=== PATIENT | male | born 1965 | race Caucasian/White ===

== ENCOUNTER 2021-10-07 21:06 | Observation (INO) ==
[2021-10-07 23:36] LABS: Basophils # (auto) 0.02 K/uL (0-0.2); Basophils % (auto) 0.3 %; Eosinophils # (auto) 0.06 K/uL (0-0.50); Eosinophils % (auto) 0.9 %; Immature Granulocytes # (auto) 0.02 K/uL (0.00-0.02); Immature Granulocytes % (auto) 0.3 %; Lymphocytes # (auto) 0.87 K/uL (1.2-3.4); Lymphocytes % (auto) 13.1 %; Mean Corpuscular Hemoglobin 29.8 pg (25.0-34.0); Mean Corpuscular Volume 87.6 fL (80.0-100.0); Monocytes # (auto) 0.71 K/uL (0.24-0.82); Monocytes % (auto) 10.7 %; Neutrophils # (auto) 4.98 K/uL (1.4-6.5); Neutrophils % (auto) 74.7 %; Platelet Count 240 K/uL (130-400); Red Blood Count 5.71 M/uL (4.63-6.08); White Blood Count 6.66 K/ul (4.8-10.8)
[2021-10-08 00:01] LABS: Albumin Globulin Ratio 1.6 (0.9-2); Albumin Level 4.4 gm/dl (3.4-5.0); BUN Creatinine Ratio 16.4 (10-20); Bilirubin,Total 0.8 mg/dl (0.2-1.0); Calcium 9.1 mg/dl (8.5-10.1); Est GFR (Non-African American) 62.2 ml/min; Globulin 2.7 gm/dl (2.5-4.0); Total Protein 7.1 gm/dl (6.0-8.3)
[2021-10-08] MEDS ORDERED: MoRPHine SULFATE 2 MG/ML CARP IV PRN (00:25)
[2021-10-08] MEDS ORDERED: MoRPHine SULFATE 4 MG/ML 1 ML CARP\\VIAL IV PRN (00:25)
[2021-10-08] MEDS ORDERED: PROMETHAZINE HCL 25 MG in SODIUM CHLORIDE 0.9% 50 ML IV PRN (00:28)
[2021-10-08] MEDS ORDERED: ONDANSETRON INJ 2 MG/ML 2 ML VIAL IV PRN ×2 (00:28→12:44)
[2021-10-08] MEDS ORDERED: PIPERACILLIN/TAZOBACTAM 4.5 GM/120 ML BAG IV STA (01:05)
[2021-10-08] MEDS: LACTATED RINGER'S 1,000 ML IV SCH ×3 (01:46→21:04)
[2021-10-08] MEDS: PIPERACILLIN/TAZOBACTAM 3.375 GM in DEXTROSE 5% 100 ML IV SCH ×3 (06:49→21:04)
--- NOTE | 2021-10-08 07:28 | Emergency Department Note ---
Impression & Plan Abdominal pain, acute, right lower quadrant Admit to Dr. Krishnan observation ED Provider Note NAME: JUHI PALACIOS AGE: 56 SEX: M ARRIVES VIA: Walk-In INFORMANT: Patient ED PROVIDER(S): Norma Yates DO CHIEF COMPLAINT: Right Lower quadrant abdominal pain PLAN: Disposition: Admit to Dr. Krishnan Condition: Fair MEDICAL DECISION MAKING: This is a 56-year-old male patient presents emergency department with right lower quadrant abdominal pain for the past 2 days. The patient had an outpatient CT scan of the abdomen/pelvis which showed equivocal signs of early appendicitis. Patient was directed here to the emergency department for laboratory studies. These were obtained and were unremarkable. I discussed the case with Dr. Krishnan from surgery and he will evaluate for further management. Triage Nursing notes reviewed and agree with them. Prior medical records reviewed from [facility] Vital Signs: reviewed and remarkable Differential diagnosis: Mesenteric lymphadenitis, acute appendicitis, bowel perforation Diagnostics interpreted by me: Laboratory studies: See below HPI: 56/M arrives for evaluation of right lower quadrant abdominal pain. Patient developed diffuse mid abdominal pain on Wednesday evening that he described as being uncomfortable. The pain was more epigastric and general in nature and then moved to the right lower quadrant over the past 48 hours. He had some slight nausea at that time. He then developed a fever over the past 36 hours. Patient was seen at a [facility] clinic where he underwent CT scanning which showed evidence of equivocal early appendicitis he was directed here for laboratory tests and further evaluation. ROS: See above HPI for pertinent positives & negatives. A total of 10 systems reviewed and were otherwise negative. PAST MEDICAL HISTORY:None PAST SURGICAL HISTORY:See Below FAMILY HISTORY:See Below SOCIAL HISTORY:Does not smoke or drink alcohol. He lives with his family. HOME MEDICATIONS:See list ALLERGIES:None VITALS:See Below PHYSICAL EXAMINATION: HEENT: Head - normocephalic and atraumatic Pupils are equal, round, and reactive to light. Extraocular eye muscles are intact, and sclera are anicteric. Nose - moist nasal mucosa without discharge. Mouth - moist buccal mucosa. Oropharynx is nonerythematous and there is no tonsillar exudate or edema noted. Neck: Supple; no JVD, nuchal rigidity, cervical lymphadenopathy, or auscultated bruits. Heart: Regular rate and rhythm. There is a normal S1 and S2 with no murmurs, clicks, or gallops appreciated. Lungs: Clear to auscultation bilaterally with no wheezes, rales, or rhonchi. Abdomen: Soft, moderate tenderness to palpation in the right lower quadrant over McBurney's point. Normal bowel sounds. Abdomen is nondistended. There are no palpable pulsatile masses or hepatosplenomegaly. There is no guarding, rigidity, or rebound noted. Extremities: No evidence of cyanosis, clubbing, or edema. There are easily palpable peripheral pulses. Skin: warm and dry with good turgor and no rashes. ED COURSE: Times/Reassessments: 231: A complete history and physical was performed. Reports from [employer] were reviewed. An IV lock was initiated and labs were drawn as above. Discussed the case with Dr. Krishnan and he will admit the patient for observation. Norma Ytaes DO Past Med/Surg History Social History Smoking Status: Never smoker Second Hand Exposure: No; Do You Dip or Chew Tobacco: No; Hx Alcohol Use: Yes Alcohol type: beer Hx Substance Use: No Preferred Language: Nepali Communication Ability: Effective Punch Press Feeder Required: No Beliefs That Will Affect Care: None Current Living Situation: Family Other Information That Helps Us Care for You: No Feels Safe at Home: Yes Safety Concerns: Feels Safe At This Time Assistive Devices: CPAP and Glasses Assistive Devices Comment: reading glasses and CPAP at home Allergies Allergies Allergy/AdvReac Type Severity Reaction Status Date / Time No Known Allergies Allergy Unknown Verified 10/08/21 01:02 Home Meds Home Medications Medication Instructions Recorded Confirmed melatonin 10 mg tablet 10 mg PO HS 10/08/21 10/08/21 Results & Data (ED) Vital Signs Vital Signs - 24 hr 10/07/21 21:49 Temperature 37.2 C Temperature Source Temporal Artery Scan Pulse Rate 77 Pulse Rhythm Regular Pulse Strength Normal Respiratory Rate 20 Respiratory Effort / Characteristics Non-Labored Respiratory Depth Normal Respiratory Pattern Regular Blood Pressure 121/85 Blood Pressure Mean 97 Blood Pressure Position Sitting Pulse Oximetry 98 Oxygen Delivery Method Room Air Sepsis Recent Fever Within 48 Hours Yes Sepsis New/Unexplained Change in Mental Status N/A Sepsis Action Taken by Nursing No Action Required Laboratory Data Result diagrams: 10/07/21 23:19 10/07/21 23:19 Lab Results 10/07/21 10/07/2110/07/22 Range/Units 21:55 23:19 23:19 WBC 6.66 (4.8-10.8) K/ul RBC 5.71 (4.63-6.08) M/uL Hgb 17.0 (14.0-18.0) g/dl Hct 50.0 (40.1-51.0) % MCV 87.6 (80.0-100.0) fL MCH 29.8 (25.0-34.0) pg MCHC 34.0 (32.0-36.0) g/dL RDW Std Deviation 41.0 (36.4-46.3) fL RDW Coeff of Gabrielle 13.0 (11.5-14.5) % Plt Count 240 (130-400) K/uL MPV 10.0 (9.4-12.4) fL Immature Gran % (Auto) 0.3 % Neut % (Auto) 74.7 % Lymph % (Auto) 13.1 % [place] % (Auto) 10.7 % Eos % (Auto) 0.9 % Baso % (Auto) 0.3 % Neut # (Auto) 4.98 (1.4-6.5) K/uL Lymph # (Auto) 0.87 L (1.2-3.4) K/uL [place] # (Auto) 0.71 (0.24-0.82) K/uL Eos # (Auto) 0.06 (0-0.50) K/uL Baso # (Auto) 0.02 (0-0.2) K/uL Immature Gran # (Auto) 0.02 (0.00-0.02) K/uL Sodium 138 (136-145) mmol/L Potassium 4.0 (3.5-5.1) mmol/L Chloride 100 (98-107) mmol/L Carbon Dioxide 31 (21-32) mmol/L Anion Gap 7 (3-11) BUN 21 (6-23) mg/dl Creatinine 1.28 (0.6-1.4) mg/dl Est Cr Clr Drug Dosing 75.0 ml/min Est GFR ( Amer) 72.0 ml/min Est GFR (Non-Af Amer) 62.2 ml/min BUN/Creatinine Ratio 16.4 (10-20) Glucose 93 (70-99(Fasting)) mg/dl Calcium 9.1 (8.5-10.1) mg/dl Total Bilirubin 0.8 (0.2-1.0) mg/dl AST 14 (13-39) U/L ALT 17 (7-52) U/L Alkaline Phosphatase 92 (34-104) U/L Total Protein 7.1 (6.0-8.3) gm/dl Albumin 4.4 (3.4-5.0) gm/dl Globulin 2.7 (2.5-4.0) gm/dl Albumin/Globulin Ratio 1.6 (0.9-2) Lipase 21 (11-82) U/L SARS-CoV-2, RNA, NAAT NEGATIVE (NEGATIVE) Administered Medications Lactated Ringer's (Lr) 1,000 mls @ 100 mls/hr IV .Q10H NATHALY Stop: 11/07/21 00:29 Last Admin: 10/08/21 01:46 Dose: 100 mls/hr Documented By: ALPHONSE Piperacillin Sod/Tazobactam (Sod 3.375 gm/ Dextrose) 115 mls @ 28.75 mls/hr IV Q8H NATHALY; Protocol Stop: 10/18/21 05:59 Last Admin: 10/08/21 06:49 Dose: 28.8 mls/hr Documented By: Discontinued Medications Piperacillin Sod/Tazobactam Sod (Zosyn) 4.5 gm in 120 mls @ 240 mls/hr IV NOW S TA; Protocol Stop: 10/08/21 01:34 Last Infusion: 10/08/21 02:16 Dose: 0 mls/hr Documented By: Admin: 10/08/21 01:46 Dose: 240 mls/hr Documented By: ALPHONSE Discharge Plan Visit Data Chief Complaint: Abdominal Pain Stated Complaint: APPENDICITIS ED Provider: Norma Yates Discharge Problem: Abdominal pain, acute, right lower quadrant Patient Disposition: Admitted As Inpatient Discharge Instructions Interventions: ED Discharge Assessment Last Done: 10/08/21 04:17
--- NOTE | 2021-10-08 10:04 | Surgery Consultation ---
Date of Consultation October 08, 2021 Assessment & Plan (1) Appendicitis: pt is a 56 year-old male who was admitted to hospital for RLQ pain, IMP: acute appendicitis, RLQ pain, Plan, pt is still have RLQ pain, I recommend to do laparoscopic appendectomy, possible open, D/W benefits, risks and alternatives of the surgery, the risks- infection, bleeding, abscess, injury other organs, incisional hernia, pt understood, he agrees with surgery,he signed informed consent, I answered all questions, pre-op antibiotic, (2) Abdominal pain, acute, right lower quadrant: see above History of Present Illness Reason for Consultation: abdominal pain Requesting Physician: Norma Yates DO Attending Physician: Lenin Olivo MD History of Present Illness HPI: 56/M arrives for evaluation ofright lower quadrant abdominal pain. Patient developed diffuse mid abdominal pain on Wednesday evening that he described as being uncomfortable. The pain was more epigastric and general in nature and then moved to the right lower quadrant over the past 48 hours. He had some slight nausea at that time. He then developed a fever over the past 36 hours. Patient was seen at a [facility] clinic where he underwent CT scanning which anderson wed evidence of equivocal early appendicitis he was directed here for laboratory tests and further evaluation. I ( Lenin Oilvo MD ) got a call for consult appendicitis, I reviewed pt's H/P, labs, CT scan with pt, pt is still have RLQ pain, ROS: See above HPI for pertinent positives & negatives. A total of 10 systems reviewed and were otherwise negative. PAST MEDICAL HISTORY:None PAST SURGICAL HISTORY:See Below FAMILY HISTORY:See Below SOCIAL HISTORY:Does not smoke or drink alcohol. He lives with his family. HOME MEDICATIONS:See list ALLERGIES:None Allergies Allergy/AdvReac Type Severity Reaction Status Date / Time No Known Allergies Allergy Unknown Verified 10/08/21 01:02 Home Medications Medication Instructions Recorded Confirmed Type melatonin 10 mg tablet 10 mg PO HS 10/08/21 10/08/21 History Patient History Social History Smoking Status: Never smoker Second Hand Exposure: No; Do You Dip or Chew Tobacco: No; Hx Alcohol Use: Yes Alcohol type: beer Hx Substance Use: No Preferred Language: Pashto Communication Ability: Effective Blood Splatter Analyst Required: No Beliefs That Will Affect Care: None Current Living Situation: Family Other Information That Helps Us Care for You: No Feels Safe at Home: Yes Safety Concerns: Feels Safe At This Time Assistive Devices: CPAP and Glasses Assistive Devices Comment: reading glasses and CPAP at home Review of Systems Constitutional: as per Subjective / HPI Eyes: as per Subjective / HPI Respiratory: as per Subjective / HPI Cardiovascular: as per Subjective / HPI Gastrointestinal: as per Subjective / HPI, + abdominal pain and + nausea Genitourinary: + as per Subjective / HPI Neurologic: as per Subjective / HPI Psychiatric: as per Subjective / HPI Endocrine: as per Subjective / HPI Hematologic / Lymphatic: as per Subjective / HPI Physical Exam Constitutional: WD/WN, vitals as above Eyes: PERRL, conjunctivae normal, anicteric sclerae Neck: trachea midline, no thyromegaly Respiratory: normal respiratory effort, lungs clear to auscultation Cardiovascular: RRR, no murmur, no edema Gastrointestinal (Abdomen): tenderness at RLQ, no rebound pain, no disten, BS +. Musculoskeletal: no cyanosis or clubbing, extremities motor strength 5/5 Neurologic: patellar DTR's 2+ bilat, sensation intact Psychiatric: A+Ox3, euthymic affect Results & Data ([facility]) Vital Signs (Past 12 Hours) Vital Signs Temp Pulse Pulse Resp BP BP Pulse Ox 10/08/21 07:52 10/08/21 05:32 64 16 99 10/08/21 04:30 36.7 C 67 16 114/65 95 10/08/21 04:00 67 15 113/77 10/08/21 03:00 113/65 10/08/21 02:30 74 18 118/79 99 10/08/21 00:42 77 18 121/76 99 O2 Del Method FiO2 10/08/21 07:52 Room Air 10/08/21 05:32 21 10/08/21 04:30 Room Air 10/08/21 04:00 10/08/21 03:00 10/08/21 02:30 Room Air 10/08/21 00:42 Room Air Laboratory Results Abnormal lab results 10/07/21 Range/Units 23:19 Lymph # (Auto) 0.87 L (1.2-3.4) K/uL Diagnostic Findings CT scan- report- 9 mm appendix, possible early appendicitis,
--- NOTE | 2021-10-08 10:04 | History & Physical Bridge Note ---
Date of Service October 08, 2021 History & Physical Bridge Note I have examined the patient, reviewed the History & Physical and in the interval since the performance of the History & Physical I have noted the following changes of clinical significance: no changes noted
[2021-10-08] MEDS ORDERED: KETOROLAC 30 MG/ML VIAL IV PRN (12:44)
[2021-10-08] MEDS ORDERED: fentaNYL citrate 100 MCG/2 ML VIAL IV PRN (12:44)
[2021-10-08] MEDS ORDERED: ATROPINE SULFATE 0.1 MG/ML 10ML SYR IV PRN (12:44)
--- NOTE | 2021-10-08 12:44 | Anesthesiology Consultation ---
Date of Service October 08, 2021 Assessment & Plan (1) Encounter for pre-operative examination: Chart Review Chart Review: Acceptable Risk for Surgery History Surgery Operation Date: 10/08/21 11:55 Proposed Procedures p Laparoscopic Appendectomy - Lenin Olivo MD Height/Weight Height: 5 ft 10 in Weight: 95.6 kg Allergies Allergy/AdvReac Type Severity Reaction Status Date / Time No Known Allergies Allergy Unknown Verified 10/08/21 01:02 Medications Home Medications Medication Instructions Recorded Confirmed Last Taken melatonin 10 mg tablet 10 mg PO HS 10/08/21 10/08/21 10/07/21 Active Medications Generic Name Dose Route Start Last Admin Trade Name Dilcia PRN Reason Stop Dose Admin Lactated Ringer's 1,000 mls @ 100 mls/hr 10/08/21 00:30 10/08/21 10:20 Lr IV 11/07/21 00:29 100 mls/hr .Q10H NATHALY Administration Piperacillin Sod/Tazobactam 115 mls @ 28.75 mls/hr 10/08/21 06:00 10/08/21 10:50 Sod 3.375 gm/ Dextrose IV 10/18/21 05:59 Infused Q8H NATHALY Infusion Protocol NPO Date Last Intake of Fluids: 10/07/21 Time Last Intake of Fluids: 23:59 Past Medical History Medical History (Updated 10/08/21 @ 12:44 by Austyn Herrera MD) No significant medical problems Past Surgical History Surgical History (Updated 10/08/21 @ 12:43 by Austyn Herrera MD) No significant past surgical history Social History Smoking Status: Never smoker Do You Dip or Chew Tobacco: No Hx Alcohol Use: Yes Alcohol type: beer alcohol intake frequency: holidays/special occasions only Hx Substance Use: No substance use type: does not use Physical Exam Vital Signs Last Vital Signs Temp 36.7 C 10/08/21 04:30 Pulse 64 10/08/21 05:32 Resp 16 10/08/21 05:32 BP 114/65 10/08/21 04:30 Pulse Ox 99 10/08/21 05:32 O2 Del Method 10/08/21 07:52 FiO2 21 10/08/21 05:32 Testing Laboratory Results 10/07/21 23:19 10/07/21 23:19
[2021-10-08] MEDS ORDERED: BACITRACIN OINT 15 GM TUBE ONE (13:19)
[2021-10-08] MEDS ORDERED: LIDOCAINE 1% LOCAL 20 ML VIAL ONE (13:20)
[2021-10-08] MEDS ORDERED: BUPIVACAINE 0.5 % 5 MG/1 ML MPF 30ML VIAL ONE (13:20)
[2021-10-08] MEDS ORDERED: ROCURONIUM BROMIDE 10 MG/ML 5 ML VIAL IV ONE (13:31)
[2021-10-08] MEDS ORDERED: PROPOFOL IV EMULSION 10 MG/ML 20 ML VIAL IV ONE (13:31)
[2021-10-08] MEDS ORDERED: DEXAMETHASONE SOD INJ 4 MG/ML VIAL ONE (13:31)
[2021-10-08] MEDS ORDERED: LIDOCAINE 2% MPF LOCAL 5 ML VIAL INFIL ONE (13:31)
[2021-10-08] MEDS ORDERED: MIDAZOLAM HCL 1 MG/ML 2ML VIAL ONE (13:31)
[2021-10-08] MEDS ORDERED: fentaNYL citrate 100 MCG/2 ML VIAL ONE ×2 (13:31)
[2021-10-08] MEDS ORDERED: ONDANSETRON INJ 2 MG/ML 2 ML VIAL ONE (13:31)
[2021-10-08] MEDS ORDERED: ACETAMINOPHEN 1000 MG/100 ML IV IV ONE (13:42)
--- NOTE | 2021-10-08 14:46 | Post Operative Brief Note ---
Immediate Post Op Note v1 Date of Surgery October 08, 2021 Pre & Post Diagnosis Operation Date: 10/08/21 11:55 Pre-Op Diagnosis: Acute Appendicitis Post-Op Diagnosis: Acute Appendicitis I identified the patient and participated in the time-out.: Yes Procedure Operation Date: 10/08/21 11:55 Actual Procedures p Laparoscopic Appendectomy - Lenin Olivo MD Surgeon Lenin Olivo MD [place] Attendant cardiac catheterization technologist Estimated Blood Loss 10 Findings Consistent with Post-Op Diagnosis Fluids 1200ml Specimens appendix Drains Tipton Catheter (16fr tipton catheter inserted without difficulty by Cristiano Tierney RN. Tipton is patent and draining concentrated clear yellow urine. Anesthesia to monitor urine output intraoperatively. Tipton removed at end of case with balloon intact. Tipton drained approximately 700ml.) Anesthesia Type General Complications none Disposition Accompanied Patient To Recovery: Yes
[2021-10-08] MEDS ORDERED: NEOSTIGMINE METHYLSULFATE 1 MG/ML 10ML VIAL ONE (14:52)
[2021-10-08] MEDS ORDERED: GLYCOPYRROLATE 0.2 MG/ML VIAL ONE (14:52)
[2021-10-08] MEDS ORDERED: oxyCODONE/ACETAMINOPHEN 5mg/325mg TAB PO PRN (15:32)
--- NOTE | 2021-10-08 15:41 | Anesthesiology Progress Note ---
Date of Service October 08, 2021 Anesthesia Post Procedure Vital Signs Vital Signs: Temp Pulse Pulse Pulse Resp BP BP 10/08/21 15:33 36.6 C 676 H 16 116/71 10/08/21 15:25 36.3 C L 62 17 105/51 L 10/08/21 15:15 69 19 116/67 10/08/21 15:05 66 18 122/72 10/08/21 14:55 57 L 21 132/81 10/08/21 14:49 36.7 C 66 12 140/78 10/08/21 12:38 36.7 C 69 20 121/76 10/08/21 07:52 10/08/21 05:32 64 16 10/08/21 04:30 36.7 C 67 16 114/65 10/08/21 04:00 67 15 113/77 10/08/21 03:00 113/65 10/08/21 02:30 74 18 118/79 10/08/21 00:42 77 18 121/76 10/07/21 21:49 37.2 C 77 20 121/85 Pulse Ox O2 Del Method O2 Flow Rate FiO2 10/08/21 15:33 94 Room Air 10/08/21 15:25 94 Room Air 10/08/21 15:15 94 Room Air 10/08/21 15:05 98 Oxymask 12 10/08/21 14:55 98 Oxymask 10/08/21 14:49 99 Oxymask 12 10/08/21 12:38 98 Room Air 10/08/21 07:52 Room Air 10/08/21 05:32 99 21 10/08/21 04:30 95 Room Air 10/08/21 04:00 10/08/21 03:00 10/08/21 02:30 99 Room Air 10/08/21 00:42 99 Room Air 10/07/21 21:49 98 Room Air Pain Intensity Right Lower Abdomen: Pain Intensity: 2 Transfer of Care Handoff Completed per policy Notes Mental Status: alert / awake / arousable Patient Amnestic to Procedure: Yes Nausea / Vomiting: adequately controlled Pain: adequately controlled Airway Patency, RR, SpO2: stable & adequate BP & HR: stable & adequate Hydration State: stable & adequate Anesthetic Complications: no major complications apparent
[2021-10-08] MEDS: MELATONIN 3 MG TAB PO SCH ×2 (21:04→22:49)
--- NOTE | 2021-10-08 21:09 | Operative Report (OR) ---
DATE OF PROCEDURE: 10/08/2021 PREOPERATIVE DIAGNOSIS: Acute appendicitis. POSTOPERATIVE DIAGNOSIS: Acute appendicitis. OPERATION: Laparoscopic appendectomy. SURGEON: Lenin Olivo MD. ANESTHESIA: General. ESTIMATED BLOOD LOSS: About 10 mL. FINDINGS: Acute appendicitis. COMPLICATIONS: None. INDICATIONS FOR THE PROCEDURE: This is a 56-year-old gentleman who was admitted to the hospital for acute appendicitis. I recommended to do laparoscopic appendectomy, possible open. I did talk to the patient about the benefit, risk, alternate procedure. I indicated the risks may include, but not li mited to, such as bleeding, infection, injury to other organs, abscess, myocardial infarction, DVT, s troke, even , and incisional hernia. The patient understands. I answered all questions. DETAILS OF PROCEDURE: After we identified the patient and verified the procedure, we brought the pat ient to the OR, put the patient in the supine position on the OR table. The patient received SCD on bilateral legs to prevent DVT. Also, patient received 3.375 grams of Zosyn IV for prophylactic antib iotic and the patient received general anesthesia without difficulty. Also, patient received a Florez catheter insertion. The abdomen was prepped and draped in routine sterile fashion. After timeout, I injected the local anesthesia by using 1% lidocaine mixed with 0.5% Marcaine just above the umbilic us. Then, I made a small incision just above umbilicus, opened fascia, opened peritoneum. Under dir ect vision, put a Rose Mary trocar in, connected to CO2 to create pneumoperitoneum, flow rate at 6 liter s per minute, pressure not more than 14 mmHg. Once we got a nice pneumoperitoneum, we put a camera in, looked around the abdomen. Normal finding o n the small bowel, large bowel; however, the appendix was enlarged, about 9 mm with inflammation, con firming the diagnosis of acute appendicitis. Once we confirmed diagnosis, I put another two 5 mm tro cars in the left lower quadrant area, then I used the Harmonic to take down appendiceal; rechecked, n o active bleeding. Then, I used a 45 mm Endo-IMER stapler for transection on the base of appendix, re checked the staple line, intact. No leak, no active bleeding. Then, I removed the appendix through the catch bag. Then, we reinserted the Rose Mary trocar in, connected to CO2 to create pneumoperitoneum, again looked a round the abdomen, no active bleeding, no leak from the staple line. Then, we removed all trocars un madi direct vision. No active bleeding from the trocar site. Pneumoperitoneum was released, then I c losed the umbilical incision fascial layer by using 0 Vicryl [id number] x2, closed subcutaneous layer by using 2-0 Vicryl interruptedly, closed skin by using 4-0 Vicryl continuous running, closed a nother two 5 mm trocar site of skin only by using 4-0 Vicryl. Then, we put the dressing on. The patient tolerated the procedure well. All instrument, needle and sponge counts were correct x2 a t the end of the case. The patient was transferred to recovery room in stable condition. The specim en was sent to pathology. After the procedure, I did talk to the patient about the OR finding and th e procedure we did, they understand. Job ID: [id number]
[2021-10-09] MEDS: PIPERACILLIN/TAZOBACTAM 3.375 GM in DEXTROSE 5% 100 ML IV SCH ×2 (05:27→13:15)
[2021-10-09] MEDS: LACTATED RINGER'S 1,000 ML IV SCH (07:34)
--- NOTE | 2021-10-09 11:35 | Surgery Progress Note ---
Date of Service October 09, 2021 Assessment & Plan (1) Appendicitis: Plan: pt is a 56 year-old male who was admitted to hospital for RLQ pain, IMP: acute appendicitis, RLQ pain, Plan, pt is still have RLQ pain, I recommend to do laparoscopic appendectomy, possible open, D/W benefits, risks and alternatives of the surgery, the risks- infection, bleeding, abscess, injury other organs, incisional hernia, pt understood, he agrees with surgery,he signed informed consent, I answered all questions, pre-op antibiotic, 10/09/2021 11:34AM, F/U s/P lap appy, POD 1 doing fine, tolerated diet, no fever, pt wants to go home today, post-op care instruction was given, F/U 2 weeks, (2) Abdominal pain, acute, right lower quadrant: Plan: see above Admission and Anticipated Discharge Date Admission Date: October 08, 2021 Subjective F/P s/P lap appy, POD 1 pt is doing fine, no significant abdominal pain, tolerated diet, no fever, Review of Systems Constitutional: as per Subjective / HPI Eyes: as per Subjective / HPI Respiratory: as per Subjective / HPI Cardiovascular: as per Subjective / HPI Gastrointestinal: as per Subjective / HPI, + abdominal pain and + nausea Genitourinary: + as per Subjective / HPI Neurologic: as per Subjective / HPI Psychiatric: as per Subjective / HPI Endocrine: as per Subjective / HPI Hematologic / Lymphatic: as per Subjective / HPI Physical Exam Constitutional: WD/WN, vitals as above Eyes: PERRL, conjunctivae normal, anicteric sclerae Neck: trachea midline, no thyromegaly Respiratory: normal respiratory effort, lungs clear to auscultation Cardiovascular: RRR, no murmur, no edema Gastrointestinal (Abdomen): soft, mild tenderness at incision site, no rebound pain, no distend, all incisions intact, no redness, BS +, Musculoskeletal: no cyanosis or clubbing, extremities motor strength 5/5 Neurologic: patellar DTR's 2+ bilat, sensation intact Psychiatric: A+Ox3, euthymic affect Results & Data ([facility]) Vital Signs (Past 12 Hours) Vital Signs Temp Pulse Resp BP Pulse Ox O2 Del Method 10/09/21 10:58 36.4 C L 50 L 16 118/69 95 Room Air 10/09/21 07:35 36.4 C L 56 L 18 128/81 97 Room Air 10/09/21 01:51 54 L 16 106/66 97 CPAP
--- NOTE | 2021-10-09 12:17 | Discharge Summary (DS) ---
DATE OF ADMISSION: 10/08/2021. DATE OF DISCHARGE: 10/09/2021. ADMISSION DIAGNOSIS: Acute appendicitis. DISCHARGE DIAGNOSIS: Acute appendicitis. OPERATION: Laparoscopic appendectomy. SURGEON: Lenin Olivo MD DETAILS OF DISCHARGE SUMMARY: This is a 56-year-old gentleman who presented to the ED with acute abd ominal pain. The patient had a CT scan diagnosis of acute appendicitis. I took the patient to the O R and we did laparoscopic appendectomy. The patient tolerated the procedure well. After the procedu re, the patient was transferred to recovery room and later on transferred to regular floor. The immanuel ent is doing fine, tolerated a diet. No significant pain and no fever. PHYSICAL EXAMINATION: VITAL SIGNS: Temperature is 36.4, respiratory rate 16, heart rate 50, blood pressure 118/69, O2 satu ration 95% on room air. GENERAL: The patient is alert, awake, oriented x3. HEENT: Within normal limitation. NEUROLOGIC: Intact. NECK: No JVD. CHEST: Bilateral lung sounds clear. HEART: Normal S1 and S2. No murmur. ABDOMEN: Soft, no distention. Mild tenderness on the incision site and no rebound pain. Bowel sound s positive. All the incisions intact. No redness. EXTREMITIES: No edema. The patient wanted to go home. We gave the patient postoperative care instruction. The patient want ed to take Tylenol for pain only and I will follow up the patient in 2 weeks. Job ID: [id number]
--- NOTE | 2021-10-09 23:36 | Electrocardiogram Report ---
Test Reason : Blood Pressure : / mmHG Vent. Rate : 068 BPM Atrial Rate : 068 BPM P-R Int : 156 ms QRS Dur : 092 ms QT Int : 374 ms P-R-T Axes : 071 004 029 degrees QTc Int : 397 ms Normal sinus rhythm Normal ECG No previous ECGs available Confirmed by Micah Gan ([id number]) on 10/09/2021 11:35:32 PM Referred By: REFERRED SELF Confirmed By:Micah Gan
== END 2021-10-09 18:02 | disposition home or self-care (01) ==
LOC: ED 21:06 → 3E 10-08 00:25 → INTOOBSV 10-08 00:25 → 3E 10-08 04:17
DX: K35.80 Unspecified acute appendicitis